=== PATIENT | male | born 1990 | race Caucasian/White ===

== ENCOUNTER 2018-10-12 04:43 | Outpatient (CLI) ==
[2018-10-12 05:00] VITALS: BMI 21.6
== END 2018-10-12 04:48 | disposition critical access hospital (66) ==
LOC: AMBL 04:43
PROVIDERS: ATTEND Family Medicine
DX: S09.93XA Unspecified injury of face, initial encounter (principal); F19.10 Other psychoactive substance abuse, uncomplicated; Y04.2XXA Assault by strike against or bumped into by another person, initial encounter

== ENCOUNTER 2018-10-12 04:54 | Emergency (ER) | payer OTHER ==
[2018-10-12 05:00] VITALS: BP 127/88; TEMP 98.7; BMI 21.6
--- NOTE | 2018-10-12 06:02 | CT ---
EXAM: CT scan brain without contrast HISTORY: Trauma COMPARISON: CT scan brain 05/09/2013 FINDINGS: Contiguous axial images obtained from the skull base to the convexities without contrast u tilizing 5-mm collimation. Sagittal and coronal reconstructions were imaged and reviewed.. Redemons trated is encephalomalacia within the left frontal lobe with ex vacuo dilatation of the anterior ho rn left lateral ventricle. There are no acute intracranial findings. Visualized paranasal sinuses a nd mastoid air cells are clear. The calvarium is intact. IMPRESSION: No acute intracranial findings.
--- NOTE | 2018-10-12 06:06 | ED.PDOC ---
General ED Provider: Dr. VINCENT AMHAN-ER Chief Complaint: Multiple Trauma Stated Complaint: arrived by ems with police--noted abrasions over mouth but till not converse Time Seen by Physician: 05:00 Mode of Arrival: Ambulance Information Source: Patient, EMT, Police Exam Limitations: No limitations Nursing and Triage Documentation Reviewed and Agree: Yes Does patient meet sepsis criteria?: No System Inflammatory Response Syndrome: Not Applicable Sepsis Protocol: For patient's 13 years and over: Temp is 96.8 and below OR 101 and greater Pulse >90 BPM Resp >20/minute Acutely Altered Mental Status Are patient's symptoms suggestive of a new infection, such as: -Pneumonia -Skin, Soft Tissue -Endocarditis -UTI -Bone, Joint Infection -Implantable Device -Acute Abdominal Infection -Wound Infection -Meningitis -Blood Stream Catheter Infection -Unknown Trauma/Injury Complaint Exam - Facial Injury Complaint/Exam Location of Pain: Reports: Upper lip, Lower lip Mechanism of Injury: Reports: Trauma Onset/Duration: unknown Symptoms Are: Still present Initial Severity: Mild Current Severity: Mild Location: Reports: Discrete (oral cavity) Alleviating: Reports: None Aggravating: Reports: None Associated Signs and Symptoms: Denies: Swelling, Redness, Bruising, Numbness, Tingling, Fever, Polymyalgia, Weight loss, Visual defects, Tinnitus, Headache, Loss of consciousness Facial Findings: Present: Swelling, Abrasion Differential Diagnoses: Abrasion, Fracture Review of Systems - Review Of Systems Constitutional: Reports: No symptoms Eyes: Reports: No symptoms Ears, Nose, Mouth, Throat: Reports: No symptoms Respiratory: Reports: No symptoms Cardiac: Reports: No symptoms GI: Reports: No symptoms : Reports: No symptoms Musculoskeletal: Reports: No symptoms Skin: Reports: Bruising Neurological: Reports: No symptoms Endocrine: Reports: No symptoms Hematologic/Lymphatic: Reports: No symptoms All Other Systems: Reviewed and Negative Past Medical History - Past Medical History Previously Healthy: No Endocrine: Reports: Unknown Cardiovascular: Reports: Unknown Respiratory: Reports: Unknown Hematological: Reports: Unknown Gastrointestinal: Reports: Unknown Genitourinary: Reports: Unknown Neuro/Psych: Reports: Unknown Musculoskeletal: Reports: Unknown Cancer: Reports: Unknown - Surgical History General Surgical History: Reports: Unknown - Family History Family History: Reports: Unknown - Social History Smoking Status: Unknown if ever smoked - Immunizations Tetanus Shot up to Date: (UNKNOWN) Physical Exam - Physical Exam Appearance: Well-appearing, No pain distress, Well-nourished Eyes: JOEL, EOMI, Conjunctiva clear ENT: Ears normal, Nose normal, Oropharynx normal Respiratory: Airway patent Cardiovascular: RRR, Pulses normal, No rub, No murmur GI/: Soft, Nontender, No masses, Bowel sounds normal, No Organomegaly Musculoskeletal: Normal strength, ROM intact, No edema, No calf tenderness Skin: Warm, Dry (exam does confirm abrasions over mouth with dried blood) Neurological: Sensation intact Psychiatric: Affect appropriate, Mood appropriate Critical Care Note - Critical Care Note Total Time (mins): 0 Course - Course Hematology/Chemistry: 10/12/18 05:55 10/12/18 05:55 Orders, Labs, Meds: Lab Review 10/12/18 10/12/18 05:55 05:55 WBC 10.80 H RBC 5.04 Hgb 15.8 Hct 46.3 MCV 91.9 MCH 31.3 H MCHC 34.1 RDW Coeff of Jefe 12.5 Plt Count 255 Immature Gran % (Auto) 0.2 Neut % (Auto) 65.2 Lymph % (Auto) 22.9 Bradley % (Auto) 9.4 Eos % (Auto) 1.9 Baso % (Auto) 0.4 Immature Gran # (Auto) 0.0 Neut # (Auto) 7.1 H Lymph # (Auto) 2.5 Bradley # (Auto) 1.0 Eos # (Auto) 0.2 Baso # (Auto) 0.0 Sodium 136.2 Potassium 3.58 Chloride 100.4 Carbon Dioxide 27.1 Anion Gap 12.28 BUN 13.2 Creatinine 0.78 Estimated GFR (MDRD) 119.00 BUN/Creatinine Ratio 16.92 Glucose 101.9 Calcium 9.84 Total Bilirubin 0.92 AST 23.8 ALT 18.9 Alkaline Phosphatase 67.5 Total Protein 7.80 Albumin 4.84 Globulin 2.96 Albumin/Globulin Ratio 1.63 Plasma/Serum Alcohol < 10.0 Orders Category Date Time Status CBC W/ AUTO DIFF Stat LAB 10/12/18 05:55 Completed COMPREHENSIVE METABOLIC PANEL Stat LAB 10/12/18 05:55 Completed ETOH LEVEL [BLOOD ALCOHOL] Stat LAB 10/12/18 05:55 Completed URINE DRUG SCREEN (RAPID FOR ED) [DRUG SCREEN, URINE, LAB 10/12/18 05:51 Uncollected RAPID] Stat CT ABDOMEN/PELVIS WO CONTRAST Stat RADS 10/12/18 05:[address] CERVICAL SPINE W/O CONTRAST Stat RADS 10/12/18 05:[address] CHEST W/O CONTRAST Stat RADS 10/12/18 05:[address] HEAD W/O CONTRAST Stat RADS 10/12/18 05:[address] MAXILLOFACIAL W/O CONTRAST Stat RADS 10/12/18 05:20 Completed Vital Signs: Temp Pulse Resp BP Pulse Ox 10/12/18 04:57 98.7 F 68 16 127/88 100 Departure - Departure Time of Disposition: 06:21 Disposition: HOME SELF-CARE Discharge Problem: Trauma Instructions: Abrasion (ED) Condition: Fair Pt referred to PMD for follow-up: Yes IPMP verified?: No Additional Instructions: clean lips with peroxide today--f/u with pcp Allergies/Adverse Reactions: Allergies No Known Allergies Allergy (Unverified 03/20/16 09:08) Home Medications: Ambulatory Orders Hydroxyzine HCl 25 mg PO BID #60 09/03/16 Quetiapine Fumarate [Seroquel] 100 mg PO BEDTIME #30 09/03/16 Disposition Discussed With: Patient
--- NOTE | 2018-10-12 06:08 | CT ---
EXAM: CT scan cervical spine HISTORY: Trauma COMPARISON: CT scan cervical spine 05/09/2013 FINDINGS: Contiguous axial images were obtained through the cervical spine utilizing 2-mm collimatio n. Sagittal and coronal reconstructions were imaged and reviewed.. The vertebral bodies are normal in height and alignment. There is no acute fracture or dislocation. The facet joints are intact.. Minimal degenerative disc disease is noted at C5-C6.. There is a leftward eccentric disc bulge at C5 -C6 which mildly impresses the left side of the ventral thecal sac and mildly narrows the left neural foramen. IMPRESSION: No acute fracture or dislocation
--- NOTE | 2018-10-12 06:14 | CT ---
EXAM: CT scan facial bones HISTORY: Trauma COMPARISON: CT scan facial bones 05/09/2013 FINDINGS: The contiguous axial images obtained through the facial bones utilizing 3-mm collimation. Sagittal and coronal reconstructions were imaged and reviewed. The orbital structures are intact. The visualized paranasal sinuses are clear.. There is no acute fracture or bony abnormality. The ma ndible is intact. IMPRESSION: No acute findings
--- NOTE | 2018-10-12 06:17 | CT ---
EXAM: CT scan thorax without contrast HISTORY: , trauma COMPARISON: None. FINDINGS: Contiguous axial images obtained through the thorax without contrast utilizing 5-mm collim ation. Sagittal and coronal reconstructions were imaged and reviewed.. The thoracic inlet is unrema rkable. The heart is normal in size without pericardial effusion. The lungs are clear bilaterally.. Bone windows reveals no of lytic or blastic lesions. IMPRESSION: No acute findings.
--- NOTE | 2018-10-12 06:21 | CT ---
EXAM: CT scan abdomen pelvis without contrast HISTORY: Trauma COMPARISON: None. FINDINGS: Contiguous axial images obtained through the abdomen pelvis without contrast utilizing 3-m m collimation. Sagittal and coronal reconstructions were imaged and reviewed.. The visualized lung bases are clear. The gallbladder is fluid filled without cholelithiasis. The liver, pancreas, splee n and adrenal glands have normal unenhanced CT appearance. The kidneys are morphologically normal. The abdominal aorta is normal in course and caliber. There is a normal retrocecal appendix. There i s no free fluid or inflammatory change. Bone windows reveals no evidence of acute or blastic lesions . IMPRESSION: No acute intra-abdominal findings
== END 2018-10-12 07:08 | disposition home or self-care (01) ==
LOC: ED 04:54
DX: S00.511A Abrasion of lip, initial encounter (principal); T07.XXXA Unspecified multiple injuries, initial encounter; Y04.2XXA Assault by strike against or bumped into by another person, initial encounter; Y93.9 Activity, unspecified
CPT/HCPCS: 36415; 80053; 80307; 85025; 99283

== ENCOUNTER 2019-04-03 18:25 | Emergency (ER) ==
[2019-04-03 18:35] VITALS: BP 119/81; TEMP 98.1; BMI 23.8
[2019-04-03] MEDS ORDERED: DIFLUCAN PO STA (18:36)
--- NOTE | 2019-04-03 18:39 | ED.PDOC ---
General ED Provider: Dr. ZULY LOZANO Chief Complaint: Rash Stated Complaint: rash right left upper ext Time Seen by Physician: 18:37 (see photos) Mode of Arrival: Walk-In Information Source: Patient Exam Limitations: No limitations Nursing and Triage Documentation Reviewed and Agree: Yes Does patient meet sepsis criteria?: No System Inflammatory Response Syndrome: Not Applicable Sepsis Protocol: For patient's 13 years and over: Temp is 96.8 and below OR 101 and greater Pulse >90 BPM Resp >20/minute Acutely Altered Mental Status Are patient's symptoms suggestive of a new infection, such as: -Pneumonia -Skin, Soft Tissue -Endocarditis -UTI -Bone, Joint Infection -Implantable Device -Acute Abdominal Infection -Wound Infection -Meningitis -Blood Stream Catheter Infection -Unknown Review of Systems - Review Of Systems Constitutional: Reports: No symptoms Eyes: Reports: No symptoms Ears, Nose, Mouth, Throat: Reports: No symptoms Respiratory: Reports: No symptoms Cardiac: Reports: No symptoms GI: Reports: No symptoms : Reports: No symptoms Musculoskeletal: Reports: No symptoms Skin: Reports: Rash (SEE PHOTOS) Neurological: Reports: No symptoms Endocrine: Reports: No symptoms Hematologic/Lymphatic: Reports: No symptoms All Other Systems: Reviewed and Negative Past Medical History - Past Medical History Previously Healthy: No Endocrine: Reports: Unknown Cardiovascular: Reports: Unknown Respiratory: Reports: Unknown Hematological: Reports: Unknown Gastrointestinal: Reports: Unknown Genitourinary: Reports: Unknown Neuro/Psych: Reports: Unknown Musculoskeletal: Reports: Unknown Cancer: Reports: Unknown - Surgical History General Surgical History: Reports: Unknown - Family History Family History: Reports: Unknown - Social History Smoking Status: Current every day smoker Hx Substance Use: No Alcohol Screening: None Physical Exam - Physical Exam Appearance: Well-appearing, No pain distress, Well-nourished Eyes: JOEL, EOMI, Conjunctiva clear ENT: Ears normal, Nose normal, Oropharynx normal Respiratory: Airway patent, Breath sounds clear, Breath sounds equal, Respirations nonlabored Cardiovascular: RRR, Pulses normal, No rub, No murmur GI/: Soft, Nontender, No masses, Bowel sounds normal, No Organomegaly Musculoskeletal: Normal strength, ROM intact, No edema, No calf tenderness Skin: Warm, Dry (RASH ACUTE SEE PHOTOS) Neurological: Sensation intact, Motor intact, Reflexes intact, Cranial nerves intact, Alert, Oriented Psychiatric: Affect appropriate, Mood appropriate Critical Care Note - Critical Care Note Total Time (mins): 0 Course - Course Orders, Labs, Meds: Orders Category Date Time Status Fluconazole [Diflucan] MEDS 04/03/19 18:36 Discontinued 100 mg PO ONCE STA Medications Discontinued Medications Generic Name Dose Route Start Last Admin Trade Name Omkar PRN Reason Stop Dose Admin Fluconazole 100 mg 04/03/19 18:36 04/03/19 18:44 Diflucan PO 04/03/19 18:37 100 mg ONCE STA Administration Vital Signs: Temp Pulse Resp BP Pulse Ox 04/03/19 18:25 98.1 F 76 16 119/81 97 Departure - Departure Time of Disposition: 18:39 Disposition: HOME SELF-CARE Discharge Problem: Pruritic rash, Ringworm of body Instructions: Skin Yeast Infection (ED) Condition: Good Pt referred to PMD for follow-up: Yes IPMP verified?: No Additional Instructions: Please call your Family Physician as soon as possible to schedule a follow-up appointment.you have a case of ring worm this is contagious see your MD BAHMAN Lotrisone Cream 50g tube applied bid x 1 week Allergies/Adverse Reactions: Allergies No Known Allergies Allergy (Verified 04/03/19 18:28) Home Medications: Ambulatory Orders 1 [No Reported Medications] 04/03/19 Disposition Discussed With: Patient
== END 2019-04-03 18:52 | disposition home or self-care (01) ==
LOC: ED 18:25
DX: R21 Rash and other nonspecific skin eruption (principal); L29.9 Pruritus, unspecified; B35.4 Tinea corporis; F17.210 Nicotine dependence, cigarettes, uncomplicated
CPT/HCPCS: 99282